=== PATIENT | female | born 1970 | race Caucasian/White ===

== ENCOUNTER 2016-10-05 20:44 | Emergency (ER) | payer OTHER, BC ==
[2016-10-05] MEDS ORDERED: ONDANSETRON 4 MG VIAL ONE (21:41)
[2016-10-05] MEDS ORDERED: SODIUM CHLORIDE 0.9% 1,000 ML ONE (21:41)
[2016-10-05] MEDS ORDERED: DILAUDID 1 MG/ML AMP ONE (23:45)
== END 2016-10-06 00:29 | disposition home or self-care (01) ==
LOC: ER 20:44
DX: R10.11 Right upper quadrant pain (principal)
CPT/HCPCS: 36415; 76705; 80053; 81003; 83690; 84703; 85025; 96361; 96374; 96375